=== PATIENT | female | born 1975 | race Caucasian/White ===

== ENCOUNTER 2016-06-08 10:04 | Emergency (ER) | payer MEDICAID ==
[~2016-06-08] VITALS: Ht 165.1 cm; Wt 90.1 kg
[~2016-06-08 10:04] MED LIST: DICL50TA3 PO; LEVO100T4 PO; PENI500T PO
[2016-06-08 10:20] VITALS: BP 122/64; PULSE 89; RESP 16; TEMP 99.4; O2SAT 99
[2016-06-08] MEDS ORDERED: LEVO125T4 PO (10:29)
[2016-06-08] MEDS ORDERED: NORC5TAB PO (10:36)
[2016-06-08] MEDS ORDERED: PENI250T59 PO (10:36)
--- NOTE | 2016-06-08 10:36 | PD ---
HPI Chief Complaint: Oral / Dental Pain or Problem Time Seen by Provider: 10:26 Travel History International Travel<30 days: No Contact w/Intl Traveler<30days: No Traveled to known affect area: No History of Present Illness HPI The patient is a 40-year-old female who presents emergency department for tooth pain and ear pain. The patient has a history of partially avulsed right posterior molar and was referred by her primary physician to an oral surgeon in [place]. The patient is scheduled to have surgery in 2 weeks to have the wisdom tooth removed. The patient has pain radiating from the right jaw up into the right ear. She has been using [id number] aspirin and ear drops without any alleviation of her symptoms. She denies any hearing changes or hearing fullness, states the pain radiates from the right jaw up into the right ear. She denies any fever, chills, sweats, or swelling of the right mandible. PFSH Past Medical History Anemia: Yes Diminished Hearing: No Immunizations Current: Yes Thyroid Disease: Yes (HYPO) Influenza Vaccination: Yes ?: Not LMP: 05/07/2016 : 3 Para: 3 Tubal Ligation: Yes Past Surgical History Section: Yes (X1) Social History Alcohol Use: Yes (RARELY) Tobacco Use: Yes (1/2 PPD) Substance Use: No Allergies-Medications (Allergen,Severity, Reaction): Coded Allergies: No Known Allergies (Verified , 06/08/16) Reported Meds & Prescriptions Reported Meds & Active Scripts Active Reported Levothyroxine (Levothyroxine Sodium) 125 Mcg Tab 125 Mcg PO DAILY Review of Systems General / Constitutional: No: Fever HENT: Positive: Dental Difficulties, Earache, No: Neck Pain Gastrointestinal: No: Nausea, Vomiting Skin: No Rash Physical Exam Narrative GENERAL: Awake, alert, pleasant 40-year-old female who appears her stated age and is in no acute respiratory distress. SKIN: Focused skin assessment warm/dry. HEAD: Atraumatic. Normocephalic. EYES: Pupils equal and round. No scleral icterus. No injection or drainage. ENT: No nasal bleeding or discharge. Mucous membranes pink and moist. The right, inferior, most posterior molar consistent with tooth #32 is partially avulsed. Tender to palpation. No obvious edema along the right gingival area. The right TM is translucent and the right EAC is clear. NECK: Trachea midline. No JVD. No significant cervical lymphadenopathy noted. MUSCULOSKELETAL: No obvious deformities. No clubbing. No cyanosis. No edema. NEUROLOGICAL: Awake and alert. No obvious cranial nerve deficits. Motor grossly within normal limits. Normal speech. PSYCHIATRIC: Appropriate mood and affect; insight and judgment normal. Data Data Last Documented VS Vital Signs Date Time Temp Pulse Resp B/P Pulse Ox O2 Delivery O2 Flow Rate FiO2 06/08/16 10:20 99.4 89 16 122/64 99 MDM Medical Decision Making Medical Screen Exam Complete: Yes Emergency Medical Condition: Yes Medical Record Reviewed: Yes Differential Diagnosis Differential diagnoses includes odontalgia, pericoronitis, dental abscess, otitis media, serous otitis, eustachian tube dysfunction, cerumen impaction, otitis externa. Narrative Course The patient's physical examination is consistent with referred pain from the right inferior posterior molar consistent with pericoronitis. The patient will be placed on Pen-Vee K and prescribed pain medications. She is also advised to use Motrin for pain. She has an appointment in 2 weeks for the dental surgeon per her report. Diet as tolerated. Diagnosis Primary Impression: Pericoronitis Patient Instructions: General Instructions Additional Instructions: Medications as directed. Follow-up with your dental surgeon is scheduled. Diet as tolerated. Motrin as needed for pain. Med/Other Pt SpecificInfo: Prescription(s) given Scripts Hydrocodone-Acetaminophen ([place])5-325 mg Tab1 Tab PO Q6H PRN (PAIN) #15 TAB Ref 0 Prov:Marvin Ross MD 06/08/16 Penicillin V Potassium (Penicillin Vk)250 Mg Une281 Mg PO Q6H 10 Days Ref 0 Prov:Marvin Ross MD 06/08/16 Disposition: 01 DISCHARGE HOME Condition: Stable Marvin Ross MD Jun 08, 2016 10:36
== END 2016-06-08 10:50 | disposition home or self-care (01) ==
LOC: PHED 10:04
DX: K05.30 Chronic periodontitis, unspecified (principal); H92.01 Otalgia, right ear; E07.9 Disorder of thyroid, unspecified; F17.200 Nicotine dependence, unspecified, uncomplicated; Z86.2 Personal history of diseases of the blood and blood-forming organs and certain disorders involving the immune mechanism
CPT/HCPCS: 99282

== ENCOUNTER 2016-06-18 17:45 | Emergency (ER) | payer MEDICAID ==
[~2016-06-18] VITALS: Ht 165.1 cm; Wt 91.3 kg
[~2016-06-18 17:45] MED LIST changes: -DICL50TA3 PO; -LEVO100T4 PO; +LEVO125T4 PO; +NORC5TAB PO; +PENI250T59 PO; -PENI500T PO
[2016-06-18 17:49] VITALS: BP 155/98; PULSE 85; RESP 18; TEMP 98.1; O2SAT 100
[2016-06-18] MEDS ORDERED: EXTR500C PO (18:26)
[2016-06-18] MEDS ORDERED: IBUP-232 PO (18:26)
[2016-06-18] MEDS ORDERED: CLIN150 PO (18:26)
--- NOTE | 2016-06-18 18:27 | PD ---
HPI Chief Complaint: Oral / Dental Pain or Problem Time Seen by Provider: 18:26 Travel History International Travel<30 days: No Contact w/Intl Traveler<30days: No Traveled to known affect area: No History of Present Illness HPI 40-year-old female coming in with ongoing right lower jaw pain with radiation to the right ear and neck from which she feels is a bad tooth. She was seen 2 weeks ago with similar complaints and treated with penicillin without improvement. Patient is currently trying to get dental appointment through her Medicaid provider which is 2 weeks from today. She denies fever, chills, difficulty swallowing. She has no significant neck swelling. Pain is a 8/10. She's been taking ibuprofen with some relief. She denies sensitivity to hot and cold. She has no known drug allergies. PFSH Past Medical History Anemia: Yes Diminished Hearing: No Immunizations Current: Yes Thyroid Disease: Yes (HYPO) Tetanus Vaccination: > 5 Years Influenza Vaccination: Yes ?: Not : 3 Para: 3 Tubal Ligation: Yes Past Surgical History Section: Yes (X1) Social History Alcohol Use: Yes (RARELY) Tobacco Use: Yes (1/2 PPD) Substance Use: No Allergies-Medications (Allergen,Severity, Reaction): Coded Allergies: No Known Allergies (Verified , 06/18/16) Reported Meds & Prescriptions Reported Meds & Active Scripts Active Ibuprofen 600 Mg Tab 600 Mg PO Q6H PRN Cleocin (Clindamycin HCl) 150 Mg Cap 300 Mg PO Q6H 10 Days Acetaminophen Extra Strength (Acetaminophen) 500 Mg Cap 1,000 Mg PO Q6H PRN [place] (Hydrocodone-Acetaminophen) 5-325 mg Tab 1 Tab PO Q6H PRN Penicillin Vk (Penicillin V Potassium) 250 Mg Tab 500 Mg PO Q6H 10 Days Reported Levothyroxine (Levothyroxine Sodium) 125 Mcg Tab 125 Mcg PO DAILY Review of Systems Except as stated in HPI: all other systems reviewed are Neg General / Constitutional: No: Fever Eyes: No: Visual changes HENT: Positive: Dental Difficulties, Earache, No: Headaches, Sore Throat, Rhinitis, Rhinorrhea, Congestion, Nosebleed, Neck Stiffness, Neck Pain Cardiovascular: No: Chest Pain or Discomfort Respiratory: No: Shortness of Breath Gastrointestinal: No: Abdominal Pain Genitourinary: No: Dysuria Musculoskeletal: No: Pain Skin: No Rash Neurologic: No: Weakness Psychiatric: No: Depression Endocrine: No: Polydipsia Hematologic/Lymphatic: No: Easy Bruising Physical Exam Narrative GENERAL: Patient appears in no acute distress. SKIN: Warm and dry. Normal color. Normal turgor. No erythema. No rash. HEAD: Atraumatic. Normocephalic. Patient has mild swelling over the right lower jaw. EYES: Pupils equal and round. No scleral icterus. No injection or drainage. ENT: No nasal bleeding or discharge. Mucous membranes pink and moist. Pharynx is normal. Airway is patent. Uvula is midline. No signs of Arnel angina. TMs are clear bilaterally. Patient has tenderness with palpation along the ramus of the right lower jaw. #32 tooth has large caries present with localized swelling of the gingiva. No drainage. NECK: Trachea midline. Supple and nontender. No significant lymphadenopathy. CARDIOVASCULAR: Regular rate and rhythm. RESPIRATORY: No accessory muscle use. Clear to auscultation. Breath sounds equal bilaterally. MUSCULOSKELETAL: Extremities without clubbing, cyanosis, or edema. No obvious deformities. NEUROLOGICAL: Awake and alert. No obvious cranial nerve deficits. Motor grossly within normal limits. Five out of 5 muscle strength in the arms and legs. Normal speech. PSYCHIATRIC: Appropriate mood and affect; insight and judgment normal. Data Data Last Documented VS Vital Signs Date Time Temp Pulse Resp B/P Pulse Ox O2 Delivery O2 Flow Rate FiO2 06/18/16 17:49 98.1 85 18 155/98 100 MDM Medical Decision Making Medical Screen Exam Complete: Yes Emergency Medical Condition: Yes Medical Record Reviewed: Yes Differential Diagnosis Dental caries. Dental pain. Dental abscess. Narrative Course Patient is medically stable at time of exam. Patient is given Cleocin 150 mg she is to take 2 tabs every 6 hours for the next 10 days. Patient also given ibuprofen 600 mg 4 times a day #40. Patient is given acetaminophen 500 mg 2 tabs every 6 hours when necessary pain # 60. Patient is to follow with dental services as discussed. Patient should return the emergency Department with worsening symptoms specifically increased difficulty swallowing or neck pain. Diagnosis Primary Impression: Abscess, dental Referrals: Dentist Patient Instructions: Dental Abscess (ED), General Instructions Additional Instructions: Patient is given Cleocin 150 mg she is to take 2 tabs every 6 hours for the next 10 days. Patient also given ibuprofen 600 mg 4 times a day #40. Patient is given acetaminophen 500 mg 2 tabs every 6 hours when necessary pain # 60. Patient is to follow with dental services as discussed. Patient should return the emergency Department with worsening symptoms specifically increased difficulty swallowing or neck pain. Med/Other Pt SpecificInfo: Prescription(s) given Scripts Ibuprofen 600 Mg [id number] Mg PO Q6H PRN (Pain/Inflammation) #40 TAB Prov:Sandy Fofana DO 06/18/16 Clindamycin (Cleocin)150 Mg [id number] Mg PO Q6H 10 Days Prov:Sandy Fofana DO 06/18/16 Acetaminophen (Acetaminophen Extra Strength)500 Mg Cap1,000 Mg PO Q6H PRN (PAIN SCALE 4 TO 10) #60 CAP Ref 1 Prov:Sandy Fofana DO 06/18/16 Disposition: 01 DISCHARGE HOME Condition: Stable Fabio Arroyo Jun 18, 2016 18:27
== END 2016-06-18 18:53 | disposition home or self-care (01) ==
LOC: PHEFT 17:45
DX: R68.84 Jaw pain (principal); K04.7 Periapical abscess without sinus; F17.210 Nicotine dependence, cigarettes, uncomplicated; E03.9 Hypothyroidism, unspecified
CPT/HCPCS: 99282

== ENCOUNTER → 2016-11-15 | Outpatient (CLI) | payer MEDICAID ==
[~2016-11-15] MED LIST changes: +CLIN150 PO; +EXTR500C PO; +IBUP-232 PO
--- NOTE | 2016-11-15 16:18 | EKG ---
Date Performed: 11/15/2016 Time Performed: 11:03:50 PTAGE: 41 years EKG: Sinus rhythm NORMAL ECG NO PREVIOUS TRACING DOCTOR: Latha Arnett Interpretating Date/Time 11/15/2016 16:15:55
== END ==
LOC: HCAV 10:34
PROVIDERS: ATTEND Psychiatry & Neurology Child & Adolescent Psychiatry
DX: F31.32 Bipolar disorder, current episode depressed, moderate (principal); F41.1 Generalized anxiety disorder
CPT/HCPCS: 93005